=== PATIENT | female | born 1960 | race Caucasian/White ===

== ENCOUNTER 2017-11-27 16:52 | Emergency (ER) | payer OTHER ==
[~2017-11-27] VITALS: Ht 172.7 cm; Wt 90.7 kg
[2017-11-27] MEDS ORDERED: NAPROSYN500 MG PO (17:13)
[2017-11-27] MEDS ORDERED: CYCLOBENZAPRINE10 MG PO (17:13)
[2017-11-27] MEDS ORDERED: MEDROL DOSEPAK4 MG PO (17:13)
== END 2017-11-27 17:45 | disposition home or self-care (01) ==
LOC: ED 16:52
DX: M54.41 Lumbago with sciatica, right side (principal); Z96.643 Presence of artificial hip joint, bilateral